=== PATIENT | male | born 1995 | race American Indian/Alaskan Native ===

== ENCOUNTER 2020-06-04 15:35 | Emergency (ER) | payer SELFPAY ==
[2020-06-04 16:40] VITALS: BP 105/65
[2020-06-04] MEDS ORDERED: NEOMY 3.5 MG/BACIT 400 UNITS/POLY B 5000 UNITS/GM OINT PACKET TP ONE (16:45)
--- NOTE | 2020-06-04 17:21 | Emergency Department Report ---
- General Chief Complaint: Laceration/Recheck/Suture Stated Complaint: LAC TO ARM RT Time Seen by Provider: 06/04/20 16:40 Source: patient Mode of arrival: Ambulatory Limitations: No Limitations - History of Present Illness Initial Comments: Patient is a 24-year-old male presents emergency room with complaints of a laceration to the right forearm that occurred 2 days ago. Patient states that he got cut by a broken piece of glass. He states his tetanus immunization is up-to-date and within the last 5 years. He states that he feels decreased sensation to his right thumb. He has full range of motion of his arm and digits. He denies any weakness. He states initially there was bleeding but has since resolved. Past medical history of Hodgkin's lymphoma in remission. Pat rasheed denies any medication allergies. - Related Data Previous Rx's Medication Instructions Recorded Last Taken Type Neomycin/Bacitracin/Polymyxinb 1 applicatio TP BID #14 oint...g. 06/04/20 Unknown Rx [Triple Antibiotic Ointment] cephALEXin [Keflex] 500 mg PO QID 7 Days #28 cap 06/04/20 Unknown Rx ED Review of Systems ROS: Stated complaint: LAC TO ARM RT Other details as noted in HPI Comment: All other systems reviewed and negative ED Past Medical Hx - Past Medical History Previous Medical History?: Yes Additional medical history: Hodgkins Lymphoma - Surgical History Past Surgical History?: Yes Additional Surgical History: stomach surgery related to cancer - Medications Home Medications: Home Medications Medication Instructions Recorded Confirmed Last Taken Type Neomycin/Bacitracin/Polymyxinb 1 applicatio TP BID #14 oint...g. 06/04/20 Unknown Rx [Triple Antibiotic Ointment] cephALEXin [Keflex] 500 mg PO QID 7 Days #28 cap 06/04/20 Unknown Rx ED Physical Exam - General Limitations: No Limitations General appearance: alert, in no apparent distress - Head Head exam: Present: atraumatic, normocephalic - Eye Eye exam: Present: normal appearance - ENT ENT exam: Present: mucous membranes moist - Respiratory Respiratory exam: Absent: respiratory distress, accessory muscle use - Extremities Exam Extremities exam: Present: normal capillary refill (he has strong radial pulse to the RUE, he states he has decreased sensation of the right thumb but has normal sensation to the rest of the hand and digits, no wrist drop, full ROM including abbduction, adduction, thumb opposition), other (2 cm laceration present to the right anterior forearm which is already in the process of healing, it has already scabbed over, there is no opening, no erythema, no purulent drainage, no obvious visualized or palpable foreign bodies, he has full active ROM Of the RUE) - Neurological Exam Neurological exam: Present: alert, oriented X3 - Psychiatric Psychiatric exam: Present: normal affect, normal mood - Skin Skin exam: Present: warm, dry ED Course Vital Signs 06/04/20 16:39 Temperature 97.7 F Pulse Rate 60 Respiratory 18 Rate Blood Pressure 105/65 O2 Sat by Pulse 99 Oximetry ED Medical Decision Making - Radiology Data Radiology results: report reviewed Ordering Physician: BRIA MANJARREZ Date of Service: 06/04/20 Procedure(s): XR forearm RT Accession Number(s): [id number] cc: BRIA MANJARREZ Fluoro Time In Minutes: RIGHT FOREARM 2 VIEW(S) INDICATION / CLINICAL INFORMATION: right forearm laceration with glass COMPARISON: None available. FINDINGS: BONES / JOINT(S): No acute fracture or subluxation. No significant arthritis. SOFT TISSUES: There is a small soft tissue defect along the anterolateral mid forearm. No radiopaque foreign body is identified. ADDITIONAL FINDINGS: None. Signer Name: Marie Mena MD Signed: 06/04/2020 5:41 PM Workstation Name: [id number] Transcribed By: Dictated By: MARIE MNEA Electronically Authenticated By: MARIE MENA Signed Date/Time: 06/04/201740 DD/ 39 TD/TT: - Medical Decision Making Patient is a 24-year-old male presents emergency room with complaints of a laceration to the right forearm that occurred 2 days ago. Patient states that he got cut by a broken piece of glass. He states his tetanus immunization is up-to-date and within the last 5 years. He states that he feels decreased sensation to his right thumb. He has full range of motion of his arm and digits. He denies any weakness. He states initially there was bleeding but has since resolved. Past medical history of Hodgkin's lymphoma in remission. Patient denies any medication allergies. Vitals are stable. On exam:2 cm laceration present to the right anterior forearm which is already in the process of healing, it has already scabbed over, there is no opening, no erythema, no purulent drainage, no obvious visualized or palpable foreign bodies, he has full active ROM Of the RUE, he has strong radial pulse to the RUE, he states he has decreased sensation of the right thumb but has normal sensation to the rest of the hand and digits, no wrist drop, full ROM including abbduction, adduction, thumb opposition. X-ray right forearm: BONES / JOINT(S): No acute fracture or subluxation. No significant arthritis. SOFT TISSUES: There is a small soft tissue defect along the anterolateral mid forearm. No radiopaque foreign body is identified. ADDITIONAL FINDINGS: None. Advised patient that wound care would be performed by nurse and that we would place patient on antibiotics and give him orthopedic follow-up. Patient was agreeable with plan. Nurse attempted to find patient for discharge and he has eloped from the emergency department prior to receiving wound care, disposition, prescriptions, referral. Critical care attestation.: If time is entered above; I have spent that time in minutes in the direct care of this critically ill patient, excluding procedure time. ED Disposition Clinical Impression: Paresthesia of right thumb Laceration of right forearm Qualifiers: Encounter type: initial encounter Qualified Code(s): S51.811A - Laceration without foreign body of right forearm, initial encounter Disposition: Z-07 ELOPED Is pt being admited?: No Does the pt Need Aspirin: No Condition: Stable Instructions: Paresthesia, Wound Care, Adult Additional Instructions: Please use medication as prescribed. Please keep area clean, dry, covered. Wash with antibacterial soap and water and pat dry. No hot tub, no pool, no soaking in water. Follow-up with orthopedic doctor. Return to emergency room for new or worsening symptoms. Your x-ray shows a superficial laceration, otherwise normal Prescriptions: cephALEXin [Keflex] 500 mg PO QID 7 Days #28 cap Neomycin/Bacitracin/Polymyxinb [Triple Antibiotic Ointment] 1 applicatio TP BID #14 oint...g. Referrals: [facility] [Provider Group] - 2-3 Days ELLY LAM MD [Staff Physician] - 2-3 Days Time of Disposition: 18:32 Print Language: CYMRO
--- NOTE | 2020-06-04 17:45 | XRay Report ---
RIGHT FOREARM 2 VIEW(S) INDICATION / CLINICAL INFORMATION: right forearm laceration with glass COMPARISON: None available. FINDINGS: BONES / JOINT(S): No acute fracture or subluxation. No significant arthritis. SOFT TISSUES: There is a small soft tissue defect along the anterolateral mid forearm. No radiopaque foreign body is identified. ADDITIONAL FINDINGS: None. Signer Name: Toni Mena MD Signed: 06/04/2020 5:41 PM Workstation Name: [id number]
== END 2020-06-04 19:13 | disposition left against medical advice (07) ==
LOC: ED 15:35
DX: S51.811A Laceration without foreign body of right forearm, initial encounter (principal); R20.2 Paresthesia of skin; Z79.899 Other long term (current) drug therapy; W25.XXXA Contact with sharp glass, initial encounter; Y93.89 Activity, other specified; Y92.89 Other specified places as the place of occurrence of the external cause; Y99.8 Other external cause status
CPT/HCPCS: 99283